=== PATIENT | female | born 1960 | race African-American/Black ===

== ENCOUNTER 2016-10-18 13:13 | Emergency (ER) | payer SELFPAY ==
[~2016-10-18] VITALS: Ht 157.5 cm; Wt 52.0 kg
[~2016-10-18 13:13] MED LIST: ASPI325T24 PO; CIPR500T4 PO; DIFL150T PO
[2016-10-18 13:14] VITALS: BP 116/72; PULSE 71; RESP 15; TEMP 98.2; O2SAT 98
--- NOTE | 2016-10-18 13:21 | PD ---
Physical Exam Date Seen by Provider: October 18, 2016 Time Seen by Provider: 13:19 Narrative 55/y/o female here with URI symptoms for the past week including cough, congestion, feverish, and fatigue. Patient states productive cough with yellow green sputum. Denies nausea or vomiting. V/S Stable Awaiting Bed Placement. Data Data Last Documented VS Vital Signs Date Time Temp Pulse Resp B/P Pulse Ox O2 Delivery O2 Flow Rate FiO2 10/18/16 13:14 98.2 71 15 116/72 98 MDM Medical Record Reviewed: Yes Supervised Visit with SONIDO: Yes Condition: Stable Bong Camilo October 18, 2016 13:21
[2016-10-18] MEDS ORDERED: VENTAER INH (14:39)
[2016-10-18] MEDS ORDERED: DEXT1TAB18 PO (14:39)
[2016-10-18] MEDS ORDERED: AZIT250T3 PO (14:39)
--- NOTE | 2016-10-18 14:40 | PD ---
HPI Chief Complaint: Cold / Flu Symptoms Time Seen by Provider: 14:21 Travel History International Travel<30 days: No Contact w/Intl Traveler<30days: No Traveled to known affect area: No History of Present Illness HPI Is a 55 year-old woman with extensive smoking history presents with one week of cough congestion subjective chills and sweats, with myalgias and feeling poorly. She is a 30+ pack year history of smoking. She still smokes now. She' s not had trouble with respiratory infections in the past, does not have a history of lung disease. No other complaints. History Past Medical History Narrative Medical Anxiety depression History of hepatitis Menopausal: Yes Past Surgical History Surgical History: No Previous Surgery Social History Alcohol Use: Yes (AT [employer]) Tobacco Use: No Allergies-Medications (Allergen,Severity, Reaction): Coded Allergies: No Known Allergies (Verified , 10/18/16) Reported Meds & Prescriptions Reported Meds & Active Scripts Active Mucinex DM Maximum Strength (Dextromethorphan-Guaifenesin ER 12 HR) 60-1,200 Mg Tab 1 Tab PO BID PRN Azithromycin 250 Mg Tab 250 Mg PO DAILY 4 Days Ventolin Hfa 18 GM Inh (Albuterol Sulfate) 90 Mcg/Act Aer 2 Puff INH Q4-6H PRN Review of Systems Except as stated in HPI: all other systems reviewed are Neg Physical Exam Narrative GENERAL: Generally well-appearing 52 year-old woman, frequent cough. SKIN: Focused skin assessment warm/dry. HEAD: Atraumatic. Normocephalic. EYES: Pupils equal and round. No scleral icterus. No injection or drainage. ENT: No nasal bleeding or discharge. Mucous membranes pink and moist. NECK: Trachea midline. No JVD. No adenopathy. CARDIOVASCULAR: Regular rate and rhythm. No murmur appreciated. RESPIRATORY: Coarse breath sounds. No respiratory distress. No appreciable wheezing. GASTROINTESTINAL: Abdomen soft, non-tender, nondistended. Hepatic and splenic margins not palpable. MUSCULOSKELETAL: No obvious deformities. Data Data Last Documented VS Vital Signs Date Time Temp Pulse Resp B/P Pulse Ox O2 Delivery O2 Flow Rate FiO2 10/18/16 13:14 98.2 71 15 116/72 98 Orders Chest, Single Ap (10/18/16 ) Albuterol Hfa Inh (Proair Hfa Inh) (10/18/16 14:45) Azithromycin (Zithromax) (10/18/16 14:45) Albuterol Hfa Inh (Ventolin Hfa Inh) (10/18/16 15:00) [facility] Medical Decision Making Medical Screen Exam Complete: Yes Emergency Medical Condition: Yes Interpretation(s) My review of chest x-ray: Negative. Differential Diagnosis URI, bronchitis, pneumonia, malignancy, other Narrative Course Medical decision making 52 year-old woman to smoking history presents with URI symptoms ongoing for the past week, likely acute bronchitis. We'll check x-ray, antibiotics, steroids, likely discharge. Diagnosis Primary Impression: Acute bronchitis Additional Instructions: Antibiotics as prescribed. Use albuterol inhaler 4-6 hours until symptoms resolve. Use Mucinex DM as needed Follow-up with her primary physician 3-5 days every not feeling improved. Return to the emergency department for any new or worsening symptoms. Med/Other Pt SpecificInfo: Prescription(s) given Scripts Dextromethorphan-Guaifenesin ER 12 HR (Mucinex DM Maximum Strength)60-1,200 Mg Tab1 Tab PO BID PRN (CHEST CONGESTION AND/OR COUGH) #14 TAB Prov:Dmitry Leigh MD 10/18/16 Azithromycin 250 Mg [id number] Mg PO DAILY 4 Days Prov:Dmitry Leigh MD 10/18/16 Albuterol 18 GM Inh (Ventolin Hfa 18 GM Inh)90 Mcg/Act Aer2 Puff INH Q4-6H PRN ( SHORTNESS OF BREATH) #1 INHALER Prov:Dmitry Leigh MD 10/18/16 Disposition: 01 DISCHARGE HOME Condition: Stable Dmitry Leigh MD October 18, 2016 14:39
[2016-10-18] MEDS ORDERED: ALBUTEROL SULFATE 90 MCG/ACT HFA 8 GM INHALER INH ONE (14:45)
[2016-10-18] MEDS ORDERED: AZITHROMYCIN 250 MG TAB PO ONE (14:45)
[2016-10-18] MEDS ORDERED: ALBUTEROL SULFATE 90 MCG/ACT HFA 18 GM INHALER INH ONE (15:00)
--- NOTE | 2016-10-18 15:59 | RADRPT ---
EXAM DATE/TIME: 10/18/2016 14:52 [facility] COMPARISON: CHEST SINGLE AP, August 24, 2013, 14:04. INDICATIONS : Coughing, congestion, short of breath, congestion MEDICAL HISTORY : None. SURGICAL HISTORY : None. ENCOUNTER: Initial ACUITY: 2 days PAIN SCORE: 2/10 LOCATION: Bilateral chest FINDINGS: Portable AP view of the chest demonstrates a normal-sized cardiac silhouette. No effusion, consolidat ion, or pneumothorax is visualized. The bones and soft tissues demonstrate no acute abnormality. CONCLUSION: No acute cardiopulmonary abnormality is identified. Javad Slater MD on October 18, 2016 at 15:56 Board Certified Radiologist. This report was verified electronically.
== END 2016-10-18 15:50 | disposition home or self-care (01) ==
LOC: NEPD 13:13
DX: J20.9 Acute bronchitis, unspecified (principal); M79.1 Myalgia; R53.81 Other malaise; Z72.0 Tobacco use; Z86.59 Personal history of other mental and behavioral disorders; Z87.19 Personal history of other diseases of the digestive system
CPT/HCPCS: 71010; 99284

== ENCOUNTER 2017-08-04 15:10 | Emergency (ER) | payer SELFPAY ==
[~2017-08-04 15:10] MED LIST changes: -ASPI325T24 PO; +AZIT250T3 PO; -CIPR500T4 PO; +DEXT1TAB18 PO; -DIFL150T PO; +VENTAER INH
[2017-08-04 15:20] VITALS: BP 112/71; PULSE 82; RESP 16; TEMP 98.5; O2SAT 98
[2017-08-04 18:01] LABS: BILIRUBIN, URINE NEG (NEG); BLOOD, URINE NEG (NEG); GLUCOSE,URINE NEG (NEG); KETONE, URINE NEG (NEG); NITRITE,URINE NEG (NEG); SQUAMOUS EPITHELIAL CELL URINE 17 /hpf (0-5); URINE COLOR YELLOW (YELLW/STRAW); URINE LEUKOCYTE ESTERASE LARGE (NEG)
== END 2017-08-04 17:20 | disposition left against medical advice (07) ==
LOC: NED 15:10
DX: R30.0 Dysuria (principal); Z53.21 Procedure and treatment not carried out due to patient leaving prior to being seen by health care provider
CPT/HCPCS: 81001; 87086; 87491; 87591; 99281

== ENCOUNTER 2017-11-20 11:57 | Emergency (ER) | payer MEDICAID ==
[~2017-11-20] VITALS: Ht 160 cm; Wt 68.0 kg
[2017-11-20 12:08] VITALS: BP 95/55; PULSE 75; RESP 19; TEMP 98.1; O2SAT 98
[2017-11-20] MEDS ORDERED: metroNIDAZOLE 500 MG TAB PO ONE (15:15)
[2017-11-20 15:27] LABS: BACTERIA, URINE FEW /hpf; BILIRUBIN, URINE NEG (NEG); BLOOD, URINE SMALL (NEG); CALCIUM OXALATE CRYSTALS,URINE FEW /hpf; GLUCOSE,URINE NEG (NEG); KETONE, URINE TRACE mg/dL (NEG); MUCUS URINE MOD /lpf (OCC); NITRITE,URINE NEG (NEG); SQUAMOUS EPITHELIAL CELL URINE 5 /hpf (0-5); URINE COLOR YELLOW (YELLW/STRAW); URINE LEUKOCYTE ESTERASE LARGE (NEG)
[2017-11-20] MEDS ORDERED: BACT800T5 PO (15:48)
--- NOTE | 2017-11-20 15:48 | PD ---
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 She says this is been going on for 2 weeks she says at first it was in an watery, now it is thicker. She reports vaginal itching. She says she has burning on urination. She denies fever chills. She says she has some lower abdominal pain. She is sexually active. She says she has been taking yeast pills, because she thinks this will help prevent a yeast infection. Severity is mild to moderate. PFSH Past Medical History Arthritis: Yes (b/l hips and b/l legs) Autoimmune Disease: No Blood Disorders: No Anxiety: No Depression: Yes ( ) Cancer: No Cardiovascular Problems: No Diabetes: No Diminished Hearing: No Endocrine: No Gastrointestinal Disorders: No GERD: No Genitourinary: No Hepatitis: Yes (1998) Hiatal Hernia: No Immune Disorder: No Implanted Vascular Access Dvce: No Kidney Stones: No Musculoskeletal: Yes Neurologic: No Psychiatric: Yes Reproductive: No Respiratory: No Immunizations Current: No Renal Failure: No Thyroid Disease: No Ulcer: No ?: Not Menopausal: Yes Past Surgical History AICD: No Arteriovenous Shunt: No Gynecologic Surgery: Yes (cyst removed) Insulin Pump: No Joint Replacement: No Pacemaker: No Other Surgery: Yes Social History Alcohol Use: Yes (AT [employer]) Tobacco Use: No Substance Use: No Allergies-Medications (Allergen,Severity, Reaction): Coded Allergies: No Known Allergies (Verified , 10/18/16) Reported Meds & Prescriptions Reported Meds & Active Scripts Active Mucinex DM Maximum Strength (Dextromethorphan-Guaifenesin ER 12 HR) 60-1,200 Mg Tab 1 Tab PO BID PRN Azithromycin 250 Mg Tab 250 Mg PO DAILY 4 Days Ventolin Hfa 18 GM Inh (Albuterol Sulfate) 90 Mcg/Act Aer 2 Puff INH Q4-6H PRN Review of Systems General / Constitutional: No: Fever, Chills HENT: No: Headaches, Lightheadedness Cardiovascular: No: Chest Pain or Discomfort Respiratory: No: Shortness of Breath Gastrointestinal: No: Nausea, Vomiting Genitourinary: Positive: Dysuria, Discharge Skin: No Rash, No Change in Pigmentation Neurologic: No: Weakness, Dizziness Physical Exam Narrative GENERAL: Awake and alert, no acute distress. SKIN: Focused skin assessment warm/dry. No wounds or signs of infection. HEAD: Atraumatic. Normocephalic. EYES: Pupils equal and round. No scleral icterus. ENT: Mucous membranes pink and moist. CARDIOVASCULAR: Regular rate and rhythm. No murmur appreciated. RESPIRATORY: No accessory muscle use. Clear to auscultation. Breath sounds equal bilaterally. GASTROINTESTINAL: Abdomen soft, non-tender, nondistended. Mild suprapubic tenderness. : Exam performed in the presence of a nurse. Thick yellowish discharge. No cervical lesions. no CMT. NEUROLOGICAL: Awake and alert. No obvious cranial nerve deficits. Motor grossly within normal limits. Normal speech. Data Data Last Documented VS Vital Signs Date Time Temp Pulse Resp B/P (MAP) Pulse Ox O2 Delivery O2 Flow Rate FiO2 11/20/17 12:08 98.1 75 19 95/55 (68) 98 Orders Orders Urinalysis - C+S If Indicated (11/20/17 13:24) Wet Prep Profile (11/20/17 13:24) Gc And Chlamydia Pcr (11/20/17 13:24) Metronidazole (Flagyl) (11/20/17 15:15) Urine Culture (11/20/17 14:01) Labs Laboratory Tests Test 11/20/17 14:01 11/20/17 14:05 Urine Color YELLOW Urine Turbidity CLOUDY Urine pH 5.0 Urine Specific [place] 1.026 Urine Protein 30 mg/dL Urine Glucose (UA) NEG mg/dL Urine Ketones TRACE mg/dL Urine Occult Blood SMALL Urine Nitrite NEG Urine Bilirubin NEG Urine Urobilinogen 4.0 OR GREATER mg/dL Urine Leukocyte Esterase LARGE Urine RBC 13 /hpf Urine WBC 34 /hpf Urine Squamous Epithelial Cells 5 /hpf Urine Calcium Oxalate Crystals FEW /hpf Urine Bacteria FEW /hpf Urine Mucus MOD /lpf Microscopic Urinalysis Comment CULTURE INDICATED Clue Cells (Wet Prep) NONE SEEN Vaginal Trichomonas (Wet Prep) PRESENT Vaginal Yeast (Wet Prep) NONE SEEN MDM Medical Decision Making Medical Screen Exam Complete: Yes Emergency Medical Condition: Yes Medical Record Reviewed: Yes Differential Diagnosis UTI versus BV versus GC and Chlamydia versus trichomonas versus yeast infection Narrative Course Patient is a 56-year-old female who comes in complaining of vaginal discharge. Exam shows a thick white discharge. Urinalysis sent is positive for UTI. Wet prep is positive for trichomonas. Patient given Flagyl here. She will be discharged with a prescription for Bactrim. Advised follow-up with gynecology. Advised her sexual partner needs to be treated for Trichomonas as well. Advised to avoid sex for the next 1-2 weeks. Advised return as needed for any worsening symptoms. Diagnosis Primary Impression: Trichomonas vaginitis Additional Impression: UTI (urinary tract infection) Qualified Codes: N30.00 - Acute cystitis without hematuria Patient Instructions: General Instructions, Trichomoniasis (ED), Urinary Tract Infection in Women (ED) Additional Instructions: Follow-up with gynecology. Avoid sex for the next 1-2 weeks. Your partner needs to be treated for Trichomonas as well. Take all of your antibiotics. Return to the ED as needed for any worsening symptoms. Scripts Sulfamethoxazole-Trimethoprim (Bactrim DS) 800-160 Mg Tab 1 TAB PO BID for Infection for 5 Days, #10 TAB 0 Refills Prov: Reta Streeter MD 11/20/17 Disposition: DISCHARGE HOME Condition: Stable Reta Streeter MD Nov 20, 2017 15:48
== END 2017-11-20 15:56 | disposition home or self-care (01) ==
LOC: NEPD 11:57
DX: A59.01 Trichomonal vulvovaginitis (principal); N30.00 Acute cystitis without hematuria; B95.1 Streptococcus, group B, as the cause of diseases classified elsewhere; Z87.39 Personal history of other diseases of the musculoskeletal system and connective tissue; Z86.59 Personal history of other mental and behavioral disorders
CPT/HCPCS: 81001; 87086; 87210; 87491; 87591; 99283